=== PATIENT | female | born 1990 | race Caucasian/White ===

== ENCOUNTER 2023-06-15 22:13 | Emergency (ER) | payer OTHER ==
[~2023-06-15] VITALS: Ht 165.1 cm; Wt 68.0 kg
[2023-06-15 22:38] LABS: Hematocrit 42.1 % (33.0-51.0); Hemoglobin 13.9 g/dL (11.5-16.0); Mean Corpuscular HGB 28.8 pg (26.0-34.0); Mean Corpuscular Volume 87 fL (80-100); Mean Platelet Volume 9.2 fL (9.1-12.4); Platelet Count 389 K/mm3 (150-400); RDW Coefficient Variation 13.2 % (11.7-14.2); RDW Standard Deviation 41.5 fL (35.1-46.3); Red Blood Cell Count 4.83 M/mm3 (3.80-5.20)
[2023-06-15 23:15] LABS: BASOPHILS PERCENT MAN 0 % (0-2); EOSINOPHILS ABSOLUTE MAN 0.19 K/mm3 (0.00-0.68); EOSINOPHILS PERCENT MAN 1 % (0-6); LYMPHOCYTES ABSOLUTE MAN 6.73 K/mm3 (0.84-5.20); LYMPHOCYTES PERCENT MAN 34 % (21-46); MONOCYTES ABSOLUTE MAN 2.37 K/mm3 (0.16-1.47); MONOCYTES PERCENT MAN 12 % (4-13); NEUTROPHILS ABSOLUTE MAN 10.49 K/mm3 (1.96-9.15); SEG NEUTROPHILS PERCENT MAN 53 % (41-73); TOTAL CELLS COUNTED 100
[2023-06-15 23:30] LABS: Influenza A, PCR NEGATIVE (NEGATIVE); Influenza B, PCR NEGATIVE (NEGATIVE); Resp Syncytial Virus, PCR NEGATIVE (NEGATIVE); SARS-Cov-2 (COVID-19) PCR, MMC NEGATIVE (NEGATIVE)
[2023-06-15 23:31] LABS: Albumin, Blood 3.6 g/dL (3.4-5.0); Albumin/Globulin Ratio 1.1 (0.8-1.8); Bilirubin, Total 0.2 mg/dL (0.1-1.0); Calcium, Blood 8.8 mg/dL (8.5-10.1); Creatinine, Blood 1.08 mg/dL (0.40-1.00); Globulin, Blood 3.2 g/dL (2.2-4.0); Potassium, Blood 3.8 mmol/L (3.5-5.5); Total Protein, Blood 6.8 g/dL (6.4-8.2)
[2023-06-16 02:22] VITALS: BP 92/63
[2023-06-16] MEDS ORDERED: Inderal40 MG PO (02:22)
[2023-06-16] MEDS ORDERED: CLON1 (02:22)
[2023-06-16] MEDS ORDERED: ALBU90OI INH (02:59)
[2023-06-16] MEDS ORDERED: Prednisone10 MG PO (02:59)
[2023-06-16] MEDS ORDERED: APHEN325 M2 PO (12:51)
[2023-06-16] MEDS ORDERED: INGREZZA80 MG PO (12:51)
[2023-06-16] MEDS ORDERED: CLONAZEPAM1 MG PO (12:52)
[2023-06-16] MEDS ORDERED: Naltrexone HCl50 MG PO (12:52)
[2023-06-16] MEDS ORDERED: CYCL10 PO (12:52)
[2023-06-16] MEDS ORDERED: NEURONTIN40010 PO (12:52)
[2023-06-16] MEDS ORDERED: PROP10 PO (12:53)
[2023-06-16] MEDS ORDERED: TRAZ50 PO (12:53)
[2023-06-16] MEDS ORDERED: VILAZODONE HCL20 MG PO (12:54)
[2023-06-16] MEDS ORDERED: Melatonin5 M1 PO (12:54)
[2023-06-16] MEDS ORDERED: DOXE25 PO (12:55)
== END 2023-06-16 03:20 | disposition home or self-care (01) ==
LOC: ER 22:13
PROVIDERS: Student in an Organized Health Care Education/Training Program
DX: J39.8 Other specified diseases of upper respiratory tract (principal); Z20.822 Contact with and (suspected) exposure to COVID-19
CPT/HCPCS: 0241U; 71046; 80053; 85025; 93005; 93010; 94640; 94664; 96374; 99285-25; J1100

== ENCOUNTER 2023-06-16 12:34 | Emergency (ER) | payer OTHER ==
[~2023-06-16] VITALS: Ht 165.1 cm; Wt 68.0 kg
[~2023-06-16 12:34] MED LIST: ALBU90OI INH; CLON1; Inderal40 MG PO; Prednisone10 MG PO
[2023-06-16] MEDS ORDERED: APHEN325 M2 PO (12:51)
[2023-06-16] MEDS ORDERED: INGREZZA80 MG PO (12:51)
[2023-06-16] MEDS ORDERED: CLONAZEPAM1 MG PO (12:52)
[2023-06-16] MEDS ORDERED: NEURONTIN40010 PO (12:52)
[2023-06-16] MEDS ORDERED: Naltrexone HCl50 MG PO (12:52)
[2023-06-16] MEDS ORDERED: CYCL10 PO (12:52)
[2023-06-16] MEDS ORDERED: TRAZ50 PO (12:53)
[2023-06-16] MEDS ORDERED: PROP10 PO (12:53)
[2023-06-16] MEDS ORDERED: Melatonin5 M1 PO (12:54)
[2023-06-16] MEDS ORDERED: VILAZODONE HCL20 MG PO (12:54)
[2023-06-16] MEDS ORDERED: DOXE25 PO (12:55)
[2023-06-16 15:13] VITALS: BP 122/90
== END 2023-06-16 16:28 | disposition home or self-care (01) ==
LOC: ER 12:34
DX: J39.8 Other specified diseases of upper respiratory tract (principal); R06.1 Stridor; F41.9 Anxiety disorder, unspecified; Z79.52 Long term (current) use of systemic steroids
CPT/HCPCS: 70491; 94640; 94664; 96374; 99285-25; A9270; J1100; Q9967